=== PATIENT | male | born 1995 | race African-American/Black ===

== ENCOUNTER 2023-04-25 22:49 | Emergency (ER) | payer MEDICAID ==
[~2023-04-25] VITALS: Ht 167.6 cm; Wt 72.0 kg
[2023-04-26] MEDS ORDERED: ACETAMINOPHEN 500MG TABLET PO ONE (03:15)
[2023-04-26] MEDS ORDERED: TETANUS, DIPHTHERIA, PERTUSSIS VAC/PF 0.5ML (>10YR OLD) IM ONE (03:15)
[2023-04-26] MEDS ORDERED: BACITRACIN 15GM TUBE TOP ONE (03:15)
[2023-04-26] MEDS ORDERED: BACITRACIN ZINC OINT UDPKT TOP NR (04:15)
[2023-04-26] MEDS ORDERED: IOHEXOL-300 100 ML BOTTLE ONE (04:21)
[2023-04-26 04:40] LABS: BASOPHILS % 0.1 % (0.0-2.0); HEMOGLOBIN. 13.1 g/dL (14.0-18.0); LYMPHOCYTES % 7.6 % (20.0-50.0); MEAN CORPUSCULAR HEMOGLOBIN 32.7 pg (28.0-32.0); MEAN CORPUSCULAR VOLUME 97.3 fL (80.0-94.0); MEAN PLATELET VOLUME 9.6 fl (7.4-10.4); NEUTROPHILS % 84.3 % (40.0-76.0); PLATELET 232 x1000/uL (130-400); RED BLOOD CELL COUNT 4.01 mill/uL (4.7-6.1); RED CELL DISTRIBUTION WIDTH 12.7 % (11.6-14.6)
[2023-04-26 04:56] LABS: CHLORIDE 106 mEq/L (98-107)
[2023-04-26] MEDS ORDERED: BO1 TP (04:57)
[2023-04-26] MEDS ORDERED: IBUP-2029 MT (04:57)
[2023-04-26 06:23] VITALS: BP 131/77
== END 2023-04-26 06:26 | disposition home or self-care (01) ==
LOC: ER 23:04
DX: S21.202A Unspecified open wound of left back wall of thorax without penetration into thoracic cavity, initial encounter (principal); S41.102A Unspecified open wound of left upper arm, initial encounter; S71.002A Unspecified open wound, left hip, initial encounter; S01.00XA Unspecified open wound of scalp, initial encounter; M79.10 Myalgia, unspecified site; M79.605 Pain in left leg; M79.604 Pain in right leg; V09.9XXA Pedestrian injured in unspecified transport accident, initial encounter; Y93.89 Activity, other specified; Y92.89 Other specified places as the place of occurrence of the external cause; Y99.8 Other external cause status
CPT/HCPCS: 36415; 70450; 71045; 71260; 72125; 73502; 73610; 73630; 74177; 80048; 85025; 90471; 90715; 99285; Q9967; Z7610